=== PATIENT | female | born 1960 | race Caucasian/White ===

== ENCOUNTER → 2018-04-27 11:35 | Day surgery (SDC) | payer OTHER ==
[~2018-04-27 11:35] MED LIST: Buffered Lidocaine 1% SYRIN* 1 ML/SYRINGE INTRADERM ONE; Bupivacaine 0.5% W/EPI SDV* 30 ML VIAL ONE; Dexamethasone IV* 4 MG/ML 1 ML (4 MG) IV SLOW PU ONE; Dexamethasone IV* 4 MG/ML 1 ML (4 MG) ONE; DiMENhydriNATE IV* 50 MG/ML VIAL IV PUSH PRN; EPINEPHRINE 1 MG/ML 1 ML VIAL ONE; Famotidine IV* 10 MG/ML 2 ML (20 mg) IV ONE; Famotidine IV* 10 MG/ML 2 ML (20 mg) ONE; HYDROmorphone INJ1* 1 MG/ML SYRINGE IV PRN; Ketorolac INJ* 30 MG/ML 1 ML VIAL ONE; Lactated Ringers 1000 ML Bag* 1,000 ML IV SCH; Midazolam* 1 MG/ML 2 ML VIAL (2 MG) ONE; Naloxone* 0.4 MG/ML 1 ML VIAL IV PRN; Ondansetron INJ* 2 MG/ML VIAL ONE; Propofol* 500 MG/50 ML BTL ONE; ceFAZolin 2 GM PREMIX in ORs 2 GM/50 ML BAG IVPB ONE; fentaNYL* 50 MCG/ML 2 ML VIAL (100 MCG VIAL) ONE
[2018-04-27] MEDS: fentaNYL* 50 MCG/ML 2 ML VIAL (100 MCG VIAL) IV PRN ×2 (14:45→15:02)
[2018-04-27 15:35] VITALS: BP 147/82
--- NOTE | 2018-04-29 01:05 | OP ---
OPERATIVE REPORT: DATE OF OPERATION: 04/27/18 DATE OF : 60 SURGEON: Bebeto Mike MD HEAD AND NECK SURGEON: FILOMENA Morris. A physician assistant manager was required for the length of the procedure for assistance with positioning, knee manipulation, and closure. ANESTHESIOLOGIST: hCema Saini MD. ANESTHESIA: General anesthesia. PRE-OP DIAGNOSES: 1. Right knee possible loose body. 2. Possible right knee lateral meniscus tear. POST-OP DIAGNOSES: 1. Right knee loose body. 2. Right knee lateral meniscus tear. PROCEDURES: 1. Right knee arthroscopic removal of loose body. 2. Right knee arthroscopic partial lateral meniscectomy. ANTIBIOTICS: Ancef 2 g IV. IV FLUIDS: 900 cc crystalloid. TOURNIQUET TIME: 22 minutes at 300 mmHg, at the 5 level. [id number] TIME: 90 minutes. ARTHROSCOPY FLUIDS UTILIZED: Unknown to me. COMPLICATIONS: None. SPECIMEN: One loose body was removed, incised. It was approximately 5 mm in diameter. IMPLANTS: None. 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 She was sledding and injured her knee. There was a pop and immediate swelling in that knee and for at least 3 days after which she could barely walk and bear weight on that right lower extremity. The patient was having from knee catching. Added clarification, as per my history and physical note is that the patient's pain and swelling actually started with an episode 1 day after the sledding incident when she bent down. I met the patient in clinic and she had a large effusion and very limited range of motion of the knee. X-rays demonstrated what looked to be a 6 mm x 3 mm loose body in the lateral compartment of the knee. I considered not obtaining advanced imaging, but I did obtain an MRI. I ordered the MRI, performed an aspiration of the right knee to improve comfort and booked the patient for surgery, removal of loose body. MRI was then later reviewed. MRI to me showed question of a loose body just anterior to the posterior horn of the lateral meniscus. Radiologist believed that this represented not loose body, a meniscus tear and possibly a chronic meniscus tear, undisplaced, although they acknowledged there might be a displaced tear. I have discussed the results with the patient and discussed that she might not necessarily have a loose body, but she might instead have a meniscus tear with or without displaced fragment, acute versus chronic. As I spoke to the patient , she was actually confined to bed, her symptoms were so severe. Therefore, we both thought it is reasonable to proceed with surgery. DESCRIPTION OF PROCEDURE: In preoperative holding, the patient signed a written consent. Operative extremity was marked in the preoperative holding. The patient was taken back to the operating room and was placed supine on operating room table. Sedated and intubated. The patient's proximal right thigh was placed in a tourniquet. Distal thigh was placed in the circumferential thigh tomlin. The table height was elevated and the foot of the table was dropped. The right lower extremity was prepped and draped. Surgical time-out was performed. Esmarch was applied and tourniquet was elevated to 300 mmHg. I established an anterolateral knee arthroscopy portal. I commenced my diagnostic arthroscopy. Patellofemoral compartment had no articular cartilage lesion. The patient did have much synovitis anteriorly, which made it difficult to drop down to the more inferior compartments of the knee. Therefore , I chose at this point to make an anteromedial portal under direct visualization and debride some synovitic tissue in the patellofemoral compartment with an arthroscopic shaver. I dropped down to the medial compartment. The patient had no significant articular cartilage injury nor any meniscus tear. The posterior horn looked a little questionable. So, I made a new anteromedial arthroscopy portal under direct visualization and I introduced a probe. I probed the medial meniscus along its length and found no tear. I then inspected the intercondylar notch. ACL and PCL intact. I debrided anterior synovitis with an arthroscopic shaver. I next moved to the lateral compartment. I visualized a clear loose body sitting just anterior to the posterior horn of the lateral meniscus. I used an arthroscopic shaver to debride many of the soft tissue connections, right, of that clear body to the underlying articular cartilage. I then used a grasper to remove that loose body from the knee. It appeared osseous and cartilaginous. I inspected the lateral compartment. There appeared to be a crevice in the central aspect of the lateral femoral condyle. There was no clear loss of articular cartilage, rather it was a type of impaction injury. It seemed reasonable that a loose body present inferiorly could induce this injury. It seemed less likely that the defect had come from that crevice as it was very narrow from medial to lateral. There was also some tearing to the lateral meniscus and I used an arthroscopic shaver to smooth out some right torn meniscus of the body and posterior horn, although there were no large unstable segments. I then briefly looked into the patellofemoral compartment and removed a little bit of additional anterior synovitis. I then exited the knee. We closed the anterolateral portal and the 3 anteromedial portals with [id number] and 12 stitches using nylon 3.0 suture. Xeroform, 4x4s, ABD, sterile Webril, Gallo bandage from foot to proximal thigh. Cooling unit applied. Tourniquet was dropped with the dressing on. The patient was awakened, extubated and transferred to the PACU. DISPOSITION: The patient was discharged home when medically stable. Wound care instructions provided. The patient will follow up with me in clinic in 10 to 14 days. She will start physical therapy immediately. Aspirin 325 mg p.o. b.i.d. x14 days and Percocet as needed for pain control. [id number] #: [id number] MTDD
== END | disposition home or self-care (01) ==
LOC: OR 11:35
PROVIDERS: ATTEND Orthopaedic Surgery
DX: S83.281A Other tear of lateral meniscus, current injury, right knee, initial encounter (principal); X58.XXXA Exposure to other specified factors, initial encounter; Y93.23 Activity, snow (alpine) (downhill) skiing, snowboarding, sledding, tobogganing and snow tubing; Y92.89 Other specified places as the place of occurrence of the external cause; E78.5 Hyperlipidemia, unspecified; K21.9 Gastro-esophageal reflux disease without esophagitis
CPT/HCPCS: 88304; 88311; J0690; J1100; J1885; J2250; J2405; J2704; J3010